=== PATIENT | female | born 1955 | race African-American/Black ===

== ENCOUNTER 2024-02-01 11:03 | Emergency (ER) | payer OTHER ==
[~2024-02-01] VITALS: Ht 162.6 cm; Wt 90.0 kg
[~2024-02-01 11:03] MED LIST: AMLO2.5T2; INSU3INS8; LISI-186
[2024-02-01 11:05] VITALS: BP 186/83; PULSE 66; RESP 16; TEMP 98.4; O2SAT 100
== END 2024-02-01 11:50 | disposition home or self-care (01) ==
LOC: ER 11:49
DX: R06.00 Dyspnea, unspecified (principal); J45.909 Unspecified asthma, uncomplicated; Z91.040 Latex allergy status
CPT/HCPCS: 99283